=== PATIENT | female | born 1955 | race Caucasian/White ===

== ENCOUNTER 2016-07-31 08:59 | Emergency (ER) | payer MEDICAID ==
[2016-07-31 09:06] VITALS: BP 165/98
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
== END 2016-07-31 09:40 | disposition left against medical advice (07) ==
LOC: ER 08:59
DX: G89.29 Other chronic pain (principal); J18.9 Pneumonia, unspecified organism; I10 Essential (primary) hypertension; F41.9 Anxiety disorder, unspecified; F17.210 Nicotine dependence, cigarettes, uncomplicated; Z91.14 Patient's other noncompliance with medication regimen; Z59.9 Problem related to housing and economic circumstances, unspecified; Z53.29 Procedure and treatment not carried out because of patient's decision for other reasons
CPT/HCPCS: 99281

== ENCOUNTER 2016-08-02 08:15 | Emergency (ER) | payer MEDICAID ==
[2016-08-02] MEDS ORDERED: PREDNISONE 20 MG TABLET PO ONE (09:28)
[2016-08-02] MEDS ORDERED: IPRATROPIUM/ALBUTEROL 0.5-2.5 MG/3 ML AMPUL NEB ONE (09:28)
[2016-08-02] MEDS ORDERED: ALBUTEROL SULFATE 0.083% NEB 2.5 MG/3 ML AMPUL NEB SCH (09:30)
[2016-08-02 09:48] LABS: ABSOLUTE LYMPHOCYTES (AUTO) 0.6 10^3/uL (0.5-4.7); ABSOLUTE MONOCYTES (AUTO) 0.5 10^3/uL (0.1-1.4); ABSOLUTE NEUT (AUTO) 4.1 10^3/uL (1.7-8.2); BASOPHILS % (AUTO) 0.4 % (0-2); EOSINOPHILS % (AUTO) 0.1 % (0-6); HEMATOCRIT 41.8 % (36.0-47.0); HEMOGLOBIN 14.2 g/dL (12.0-15.5); HGB HCT DIFFERENCE 0.8; LYMPHOCYTES % (AUTO) 11.4 % (13-45); MEAN CORPUSCULAR HEMOGLOBIN 31.6 pg (27.0-33.4); MEAN CORPUSCULAR HGB CONC 33.9 g/dL (32.0-36.0); MEAN CORPUSCULAR VOLUME 93 fl (80-97); MONOCYTES % (AUTO) 9.8 % (3-13); RED BLOOD COUNT 4.48 10^6/uL (3.72-5.28); RED CELL DISTRIBUTION WIDTH 13.8 % (11.5-14.0); SEGMENTED NEUTROPHILS % (AUTO) 78.3 % (42-78); WHITE BLOOD COUNT 5.2 10^3/uL (4.0-10.5)
[2016-08-02 09:54] LABS: APPEARANCE,URINE SLIGHTLY-CLOUDY; BILIRUBIN,URINE NEGATIVE (NEGATIVE); GLUCOSE, URINE NEGATIVE (NEGATIVE); KETONES,URINE NEGATIVE (NEGATIVE); LEUKOCYTE ESTERASE,URINE NEGATIVE (NEGATIVE); NITRITE,URINE NEGATIVE (NEGATIVE); PROTEIN,URINE NEGATIVE (NEGATIVE); URINE SPECIFIC GRAVITY 1.011; UROBILINOGEN,URINE NEGATIVE mg/dL (<2.0)
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
[2016-08-02 10:10] LABS: ALANINE AMINOTRANSFERASE 25 U/L (9-52); ALBUMIN 4.3 g/dL (3.5-5.0); ALKALINE PHOSPHATASE 78 U/L (38-126); ANION GAP 11 (5-19); ASPARTATE AMINO TRANSFERASE 27 U/L (14-36); BILIRUBIN,DIRECT 0.3 mg/dL (0.0-0.4); BILIRUBIN,TOTAL 0.5 mg/dL (0.2-1.3); BLOOD UREA NITROGEN 7 mg/dL (7-20); CALCIUM 9.3 mg/dL (8.4-10.2); CARBON DIOXIDE 25 mmol/L (22-30); CHLORIDE 98 mmol/L (98-107); CREATINE KINASE 68 U/L (30-135); CREATININE RESULT 0.67 mg/dL (0.52-1.25); GLUCOSE 155 mg/dL (75-110); POTASSIUM 4.8 mmol/L (3.6-5.0); SODIUM 133.7 mmol/L (137-145); TOTAL PROTEIN 7.3 g/dL (6.3-8.2)
[2016-08-02 10:40] LABS: CREATINE KINASE MB 2.31 ng/mL (<4.55)
[2016-08-02 10:41] LABS: TROPONIN I < 0.012 ng/mL
[2016-08-02 11:06] VITALS: BP 154/92
--- NOTE | 2016-08-02 13:25 | EKG REPORT ---
SEVERITY:- NORMAL ECG - SINUS RHYTHM : Confirmed by: Vita Baldwin MD 02-Aug-2016 13:24:48
== END 2016-08-02 11:07 | disposition home or self-care (01) ==
LOC: ER 08:15
DX: J40 Bronchitis, not specified as acute or chronic (principal); J18.9 Pneumonia, unspecified organism; R06.02 Shortness of breath; R05 Cough; G89.29 Other chronic pain; M54.9 Dorsalgia, unspecified; F17.210 Nicotine dependence, cigarettes, uncomplicated; Z87.01 Personal history of pneumonia (recurrent); Z59.0 Homelessness
CPT/HCPCS: 93005; 94640; 99285; 36415; 82553; 82550; 85025; 80053; 81001; 84484; 71010; 93010; J7512; J7620

== ENCOUNTER 2016-08-03 09:54 | Emergency (ER) | payer MEDICAID ==
[2016-08-03] MEDS ORDERED: NORMAL SALINE 1000 ML 1,000 ML IV ONE (10:25)
[2016-08-03] MEDS ORDERED: IPRATROPIUM/ALBUTEROL 0.5-2.5 MG/3 ML AMPUL NEB ONE (10:26)
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
[2016-08-03 11:18] LABS: APPEARANCE,URINE CLEAR; BILIRUBIN,URINE NEGATIVE (NEGATIVE); GLUCOSE, URINE NEGATIVE (NEGATIVE); KETONES,URINE NEGATIVE (NEGATIVE); LEUKOCYTE ESTERASE,URINE NEGATIVE (NEGATIVE); NITRITE,URINE NEGATIVE (NEGATIVE); PROTEIN,URINE NEGATIVE (NEGATIVE); URINE SPECIFIC GRAVITY 1.006; UROBILINOGEN,URINE NEGATIVE mg/dL (<2.0)
[2016-08-03 11:29] LABS: ABSOLUTE LYMPHOCYTES (AUTO) 0.7 10^3/uL (0.5-4.7); ABSOLUTE MONOCYTES (AUTO) 0.2 10^3/uL (0.1-1.4); BASOPHILS % (AUTO) 0.2 % (0-2); EOSINOPHILS % (AUTO) 0.1 % (0-6); HEMATOCRIT 38.8 % (36.0-47.0); HGB HCT DIFFERENCE 0.2; LYMPHOCYTES % (AUTO) 12.3 % (13-45); MEAN CORPUSCULAR HEMOGLOBIN 31.3 pg (27.0-33.4); MEAN CORPUSCULAR HGB CONC 33.5 g/dL (32.0-36.0); MEAN CORPUSCULAR VOLUME 94 fl (80-97); MONOCYTES % (AUTO) 2.8 % (3-13); RED BLOOD COUNT 4.14 10^6/uL (3.72-5.28); RED CELL DISTRIBUTION WIDTH 13.8 % (11.5-14.0); SEGMENTED NEUTROPHILS % (AUTO) 84.6 % (42-78); WHITE BLOOD COUNT 5.9 10^3/uL (4.0-10.5)
[2016-08-03 11:32] LABS: URINE BARBITURATES SCREEN NEGATIVE; URINE METHADONE SCREEN NEGATIVE; URINE OPIATES LOW NEGATIVE; URINE PHENCYCLIDINE SCREEN NEGATIVE
[2016-08-03 11:46] LABS: ANION GAP 14 (5-19); BLOOD UREA NITROGEN 15 mg/dL (7-20); CALCIUM 9.5 mg/dL (8.4-10.2); CARBON DIOXIDE 22 mmol/L (22-30); CHLORIDE 100 mmol/L (98-107); CREATININE RESULT 0.68 mg/dL (0.52-1.25); GLUCOSE 130 mg/dL (75-110); POTASSIUM 4.6 mmol/L (3.6-5.0); SODIUM 136.3 mmol/L (137-145)
[2016-08-03 12:44] VITALS: BP 157/88
--- NOTE | 2016-08-03 20:03 | EKG REPORT ---
SEVERITY:- ABNORMAL ECG - SINUS RHYTHM CONSIDER LEFT VENTRICULAR HYPERTROPHY : Confirmed by: Vita Baldwin MD 03-Aug-2016 20:02:31
== END 2016-08-03 12:20 | disposition left against medical advice (07) ==
LOC: ER 09:54
DX: R06.00 Dyspnea, unspecified (principal); R06.02 Shortness of breath; J44.9 Chronic obstructive pulmonary disease, unspecified; F41.9 Anxiety disorder, unspecified; F17.200 Nicotine dependence, unspecified, uncomplicated
CPT/HCPCS: 93005; 94640; 99281; 96360; 36415; 80307 ×3; 85025; 80048; 81001; 84484; 71020; 93010; J7030; J7620

== ENCOUNTER 2016-08-09 07:06 | Emergency (ER) | payer MEDICAID ==
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
[2016-08-09] MEDS ORDERED: LISINOPRIL 10 MG TABLET PO ONE (08:51)
[2016-08-09] MEDS ORDERED: ALBUTEROL SULFATE HFA (90 MCG/PUFF) 8 GM MDI (1 MDI/ER DISP) IH ONE (08:51)
[2016-08-09 09:46] VITALS: BP 183/91
--- NOTE | 2016-08-09 11:12 | EKG REPORT ---
SEVERITY:- ABNORMAL ECG - SINUS TACHYCARDIA BIATRIAL ABNORMALITIES LEFT VENTRICULAR HYPERTROPHY PROBABLE INFERIOR INFARCT, OLD : Confirmed by: Mike Edwards 09-Aug-2016 11:11:33
== END 2016-08-09 10:30 | disposition left against medical advice (07) ==
LOC: ER 07:06
DX: G89.29 Other chronic pain (principal); R07.1 Chest pain on breathing; J44.9 Chronic obstructive pulmonary disease, unspecified; I10 Essential (primary) hypertension; F41.9 Anxiety disorder, unspecified; Z79.891 Long term (current) use of opiate analgesic; Z88.6 Allergy status to analgesic agent; F17.210 Nicotine dependence, cigarettes, uncomplicated; Z87.01 Personal history of pneumonia (recurrent); R05 Cough
CPT/HCPCS: 93005; 93010; 99281

== ENCOUNTER 2016-08-11 13:21 | Emergency (ER) | payer MEDICAID ==
[2016-08-11 13:46] VITALS: BP 148/90
--- NOTE | 2016-08-11 14:20 | EKG REPORT ---
SEVERITY:- ABNORMAL ECG - SINUS RHYTHM CONSIDER LEFT VENTRICULAR HYPERTROPHY : Confirmed by: Mike Edwards 11-Aug-2016 14:19:02
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
[2016-08-11] MEDS ORDERED: LISINOPRIL 10 MG TABLET PO ONE (14:57)
== END 2016-08-11 15:24 | disposition home or self-care (01) ==
LOC: ER 13:21
DX: Z76.0 Encounter for issue of repeat prescription (principal); G89.29 Other chronic pain; R07.9 Chest pain, unspecified; I10 Essential (primary) hypertension; R51 Headache; Z79.899 Other long term (current) drug therapy
CPT/HCPCS: 93005; 99284; 93010; J3490

== ENCOUNTER 2016-08-21 18:16 | Emergency (ER) | payer MEDICAID, MEDICARE ==
--- NOTE | 2016-08-21 18:35 | ER Document Report ---
ED Medical Screen (RME) - General Chief Complaint: Suicidal Ideation Stated Complaint: PSYCH EVALUATION Time seen by provider: 18:34 Mode of Arrival: Ambulatory Information source: Patient Notes: This is a 61-year-old female with a history of chronic pain, severe dysthymia, hypertension and reports recent pneumonia in [place]. Patient presents to the emergency room with suicidal ideations and severe depression. TRAVEL OUTSIDE OF THE U.S. IN LAST 30 DAYS: No - Related Data Allergies/Adverse Reactions: pregabalin [From Lyrica] Allergy (Verified 08/21/16 18:22) thiopental [From Pentothal] Allergy (Verified 08/21/16 18:22) sodium pentosol Allergy (Uncoded 08/21/16 18:22) Past Medical History - Past Medical History Cardiac Medical History: Reports: Hx Hypercholesterolemia, Hx Hypertension Pulmonary Medical History: Reports: Hx Pneumonia - Just recently in the hospital in [place] for pneumonia Renal/ Medical History: Denies: Hx Peritoneal Dialysis GI Medical History: Reports: Hx Hepatitis - C Musculoskeltal Medical History: Reports Hx Arthritis - osteoporosis, Reports Hx Musculoskeletal Deformity, Reports Hx Musculoskeletal Trauma Psychiatric Medical History: Reports: Hx Anxiety, Hx Attention Deficit Hyperactivity Disorder - ADD, Hx Depression Traumatic Medical History: Reports: Hx Fractures - Left knee Right wrist left shoulder and back, Hx Spine Fracture Infectious Medical History: Reports: Hx Hepatitis - C Past Surgical History: Reports: Hx Orthopedic Surgery - Left shoulder, HAND, Other - Eye surgery - Immunizations Hx Diphtheria, Pertussis, Tetanus Vaccination: Yes Physical Exam - Vital signs Vitals: Temp Pulse Resp BP Pulse Ox 97.3 F 119 H 20 166/115 H 98 08/21/16 18:24 08/21/16 18:24 08/21/16 18:24 08/21/16 18:24 08/21/16 18:24 Notes: Physical exam: GENERAL: 21-year-old female, alert and oriented 3, depressed, suicidal. HEAD: Atraumatic, normocephalic. EYES: Pupils equal round and reactive to light, extraocular movements intact, sclera anicteric, conjunctiva are normal. ENT: TMs normal, nares patent, oropharynx clear without exudates. Moist mucous membranes. NECK: Normal range of motion, supple without lymphadenopathy or JVD. LUNGS: Breath sounds clear to auscultation bilaterally and equal. No wheezes rales or rhonchi. HEART: Regular rate and rhythm without murmurs, rubs or gallops. ABDOMEN: Soft, normoactive bowel sounds. No tenderness to palpation. No guarding, no rebound. No masses appreciated. EXTREMITIES: Normal range of motion, no pitting or edema. No clubbing or cyanosis. NEUROLOGICAL: Cranial nerves II through XII grossly intact. Normal speech, normal gait. PSYCH: Normal mood, normal affect. SKIN: Warm, Dry, normal turgor, no rashes or lesions noted. Course - Vital Signs Vital signs: Temp Pulse Resp BP Pulse Ox 97.3 F 119 H 20 166/115 H 98 08/21/16 18:24 08/21/16 18:24 08/21/16 18:24 08/21/16 18:24 08/21/16 18:24
[2016-08-21] MEDS ORDERED: CLONIDINE HCL 0.1 MG TABLET PO ONE (18:44)
[2016-08-21 19:06] LABS: APPEARANCE,URINE SLIGHTLY-CLOUDY; BILIRUBIN,URINE NEGATIVE (NEGATIVE); GLUCOSE, URINE NEGATIVE (NEGATIVE); KETONES,URINE TRACE mg/dL (NEGATIVE); LEUKOCYTE ESTERASE,URINE NEGATIVE (NEGATIVE); NITRITE,URINE NEGATIVE (NEGATIVE); PROTEIN,URINE 100 mg/dL (NEGATIVE); URINE SPECIFIC GRAVITY 1.027; UROBILINOGEN,URINE NEGATIVE mg/dL (<2.0)
[2016-08-21 19:15] LABS: URINE BARBITURATES SCREEN NEGATIVE; URINE METHADONE SCREEN NEGATIVE; URINE OPIATES LOW UNCONFIRMED POSITIVE; URINE PHENCYCLIDINE SCREEN NEGATIVE
[2016-08-21 19:27] LABS: ABSOLUTE LYMPHOCYTES (AUTO) 1.2 10^3/uL (0.5-4.7); ABSOLUTE MONOCYTES (AUTO) 1.3 10^3/uL (0.1-1.4); BASOPHILS % (AUTO) 0.3 % (0-2); EOSINOPHILS % (AUTO) 0.1 % (0-6); HEMATOCRIT 39.6 % (36.0-47.0); HEMOGLOBIN 13.7 g/dL (12.0-15.5); HGB HCT DIFFERENCE 1.5; LYMPHOCYTES % (AUTO) 7.2 % (13-45); MEAN CORPUSCULAR HEMOGLOBIN 32.3 pg (27.0-33.4); MEAN CORPUSCULAR HGB CONC 34.6 g/dL (32.0-36.0); MEAN CORPUSCULAR VOLUME 94 fl (80-97); MONOCYTES % (AUTO) 8.1 % (3-13); RED BLOOD COUNT 4.23 10^6/uL (3.72-5.28); RED CELL DISTRIBUTION WIDTH 14.4 % (11.5-14.0); SEGMENTED NEUTROPHILS % (AUTO) 84.3 % (42-78); WHITE BLOOD COUNT 16.6 10^3/uL (4.0-10.5)
[2016-08-21 19:47] LABS: ALANINE AMINOTRANSFERASE 35 U/L (9-52); ALBUMIN 4.6 g/dL (3.5-5.0); ALCOHOL < 10 mg/dL (NONE DETECTED); ALKALINE PHOSPHATASE 77 U/L (38-126); ANION GAP 15 (5-19); ASPARTATE AMINO TRANSFERASE 35 U/L (14-36); BILIRUBIN,DIRECT 0.3 mg/dL (0.0-0.4); BILIRUBIN,TOTAL 0.8 mg/dL (0.2-1.3); BLOOD UREA NITROGEN 23 mg/dL (7-20); CALCIUM 10.2 mg/dL (8.4-10.2); CARBON DIOXIDE 25 mmol/L (22-30); CHLORIDE 97 mmol/L (98-107); CREATININE RESULT 0.81 mg/dL (0.52-1.25); GLUCOSE 138 mg/dL (75-110); POTASSIUM 5.3 mmol/L (3.6-5.0); SODIUM 136.7 mmol/L (137-145); TOTAL PROTEIN 7.8 g/dL (6.3-8.2)
[2016-08-21] MEDS ORDERED: IBUPROFEN 600 MG TABLET PO PRN (20:02)
[2016-08-21] MEDS ORDERED: HYDROXYZINE PAMOATE 25 MG CAPSULE PO PRN (20:03)
--- NOTE | 2016-08-21 20:36 | ER Document Report ---
ED General - General Chief Complaint: Suicidal Ideation Stated Complaint: PSYCH EVALUATION Mode of Arrival: Ambulatory Notes: Patient is a 61-year-old female past medical history of bipolar disorder currently untreated as well as chronic pain on 60 mg of oxycodone twice daily presents with thoughts of suicide. Patient states that she plans to kill herself by overdosing on her pain medications. She states "I have the means to do it and I really think I will." Notes that every 4-5 years she typically requires inpatient hospitalization when she becomes psychiatrically unstable. She denies any acute medical complaints. States that she was seen and treated for pneumonia approximately 3-4 months ago. Nothing is noted to improve or worsen her symptoms. She has not seen a doctor recently regarding her concerns. TRAVEL OUTSIDE OF THE [place] IN LAST 30 DAYS: No - Related Data Allergies/Adverse Reactions: pregabalin [From Lyrica] Allergy (Verified 08/21/16 18:22) thiopental [From Pentothal] Allergy (Verified 08/21/16 18:22) sodium pentosol Allergy (Uncoded 08/21/16 18:22) Home Medications: Current Home Medications Oxycodone HCl [Oxycontin] 60 mg PO Q12 08/21/16 [History] Past Medical History - General Information source: Patient - Social History Smoking Status: Current Every Day Smoker Frequency of alcohol use: Heavy recently Drug Abuse: None Family History: Reviewed & Not Pertinent Patient has suicidal ideation: No Patient has homicidal ideation: No - Past Medical History Cardiac Medical History: Reports: Hx Hypercholesterolemia, Hx Hypertension Pulmonary Medical History: Reports: Hx Pneumonia - Just recently in the hospital in [place] for pneumonia Renal/ Medical History: Denies: Hx Peritoneal Dialysis GI Medical History: Reports: Hx Hepatitis - C Musculoskeltal Medical History: Reports Hx Arthritis - osteoporosis, Reports Hx Musculoskeletal Deformity, Reports Hx Musculoskeletal Trauma Psychiatric Medical History: Reports: Hx Anxiety, Hx Attention Deficit Hyperactivity Disorder - ADD, Hx Depression Traumatic Medical History: Reports: Hx Fractures - Left knee Right wrist left shoulder and back, Hx Spine Fracture Infectious Medical History: Reports: Hx Hepatitis - C Past Surgical History: Reports: Hx Orthopedic Surgery - Left shoulder, HAND, Other - Eye surgery - Immunizations Hx Diphtheria, Pertussis, Tetanus Vaccination: Yes Review of Systems - Review of Systems Notes: Constitutional: Negative for fever. HENT: Negative for sore throat. Eyes: Negative for visual changes. Cardiovascular: Negative for chest pain. Respiratory: Negative for shortness of breath. Gastrointestinal: Negative for abdominal pain, vomiting or diarrhea. Genitourinary: Negative for dysuria. Musculoskeletal: Negative for back pain. Skin: Negative for rash. Neurological: Negative for headaches, weakness or numbness. 10 point ROS negative except as marked above and in HPI. Physical Exam - Vital signs Vitals: Temp Pulse Resp BP Pulse Ox 97.3 F 119 H 20 166/115 H 98 08/21/16 18:24 08/21/16 18:24 08/21/16 18:24 08/21/16 18:24 08/21/16 18:24 Interpretation: Tachycardic Notes: PHYSICAL EXAMINATION: GENERAL: Well-appearing, well-nourished and in no acute distress. HEAD: Atraumatic, normocephalic. EYES: Pupils equal round and reactive to light, extraocular movements intact, sclera anicteric, conjunctiva are normal. ENT: nares patent, oropharynx clear without exudates. Moist mucous membranes. NECK: Normal range of motion, supple without lymphadenopathy LUNGS: Breath sounds clear to auscultation bilaterally and equal. No wheezes rales or rhonchi. HEART: Regular rate and rhythm without murmurs ABDOMEN: Soft, nontender, normoactive bowel sounds. No guarding, no rebound. No masses appreciated. EXTREMITIES: Normal range of motion, no pitting or edema. No cyanosis. NEUROLOGICAL: No focal neurological deficits. Moves all extremities spontaneously and on command. PSYCH: Normal mood, normal affect. SKIN: Warm, Dry, normal turgor, no rashes or lesions noted. Course - Re-evaluation Re-evalutation: 08/21/16 20:35 Patient presents with suicidal ideation with plan to kill herself by overdosing on her home medications. Patient states that she has depression that is not being treated currently. Admits to ongoing alcohol use for the last one week which she states is atypical for her. She continues to be suicidal at time of my assessment with a clear plan. She denies any acute medical complaints beyond a mild cough. Her medical screening exam is otherwise unremarkable. Her laboratories do demonstrate a mild leukocytosis which is not clinically significant given her absence of any acute infectious symptoms at this time he had a mild cough and a chest x-ray does not demonstrate any acute infiltrate to suggest pneumonia. She is medically clear at this time for evaluation by psychiatry. - Vital Signs Vital signs: Temp Pulse Resp BP Pulse Ox 97.3 F 119 H 20 166/115 H 98 08/21/16 18:24 08/21/16 18:24 08/21/16 18:24 08/21/16 18:24 08/21/16 18:24 - Laboratory Result Diagrams: 08/21/16 19:00 08/21/16 19:00 Laboratory results interpreted by me: 08/21/16 08/21/16 08/21/16 18:40 19:00 19:00 WBC 16.6 H RDW 14.4 H Seg Neutrophils % 84.3 H Lymphocytes % 7.2 L Absolute Neutrophils 14.0 H Sodium 136.7 L Potassium 5.3 H Chloride 97 L BUN 23 H Glucose 138 H Urine Protein 100 H Urine Ketones TRACE H Salicylates < 1.0 L Acetaminophen < 10 L - Diagnostic Test Radiology reviewed: Image reviewed, Reports reviewed Radiology results interpreted by me: 08/22/16 03:35 Chest x-ray: No acute infiltrate - EKG Interpretation by Me Additional EKG results interpreted by me: 08/22/16 03:35 Sinus tachycardia. Rate 107. No ST elevations or depressions. QTC is 475.
--- NOTE | 2016-08-21 20:45 | EKG REPORT ---
SEVERITY:- ABNORMAL ECG - SINUS TACHYCARDIA LEFT VENTRICULAR HYPERTROPHY PROBABLE INFERIOR INFARCT, OLD CONSIDER HYPERKALEMIA, CHECK S. K. : Confirmed by: Justus Kaur MD 21-Aug-2016 20:44:52
[2016-08-21] MEDS ORDERED: ALBUTEROL SULFATE HFA (90 MCG/PUFF) 200 PUFF/8.5 GM MDI IH PRN (22:45)
[2016-08-21] MEDS ORDERED: OXYCODONE HCL SR 10 MG TABLET PO ONE (23:59)
[2016-08-21] MEDS ORDERED: OXYCODONE HCL SR 40 MG TABLET PO ONE (23:59)
--- NOTE | 2016-08-22 09:57 | ER Document Report ---
Doctor's Note Notes: 08/22/16 09:57 Lab work vital signs have been reviewed. At this time patient is currently stable with no overnight events requiring no intervention at this time. Patient stable for transfer or other disposition
[2016-08-22] MEDS ORDERED: LISINOPRIL 10 MG TABLET PO SCH (10:00)
[2016-08-22] MEDS ORDERED: OXYCODONE HCL SR 40 MG TABLET PO SCH (10:00)
[2016-08-22] MEDS ORDERED: OXYCODONE HCL SR 10 MG TABLET PO SCH (10:00)
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
[2016-08-22 10:40] VITALS: BP 144/92
== END 2016-08-22 10:40 | disposition home or self-care (01) ==
LOC: ER 18:16
DX: F32.9 Major depressive disorder, single episode, unspecified (principal); F34.1 Dysthymic disorder; D72.829 Elevated white blood cell count, unspecified; R05 Cough; M19.90 Unspecified osteoarthritis, unspecified site; G89.29 Other chronic pain; Z79.891 Long term (current) use of opiate analgesic; F17.200 Nicotine dependence, unspecified, uncomplicated; I10 Essential (primary) hypertension; Z59.0 Homelessness; Z88.6 Allergy status to analgesic agent; Z88.4 Allergy status to anesthetic agent; R88.8 Abnormal findings in other body fluids and substances; Z88.5 Allergy status to narcotic agent; Z87.01 Personal history of pneumonia (recurrent); F19.10 Other psychoactive substance abuse, uncomplicated
CPT/HCPCS: 93005; 99285; 36415; 80307 ×4; 85025; 80053; 81001; 71010; 93010; J3490 ×6